=== PATIENT | female | born 1965 | race African-American/Black ===

== ENCOUNTER 2025-01-07 08:28 | Day surgery (SDC) | payer MEDICARE ==
[~2025-01-07 08:28] MED LIST: LACTATED RINGERS 1,000 ML IV SCH
[2025-01-07 08:57] VITALS: TEMP 97.1
[2025-01-07] MEDS: IV FLUID CONTINUATION 1,000 ML IV ONE (09:13)
[2025-01-07] MEDS ORDERED: LIDOCAINE 1% INJ 10MG/ML (20 ML MDV) ONE (09:28)
[2025-01-07] MEDS ORDERED: PROPOFOL 10 MG/ML 20 ML VIAL IV ONE (09:28)
--- NOTE | 2025-01-07 09:30 | P.GSHP ---
History of Present Illness H&P Date: 01/07/25 Chief Complaint: Colon cancer screening 59-year-old female here for colonoscopy. Her last colonoscopy was 10 years ago. No bowel complaints. No family history of colon cancer. Past Medical History Past Medical History: No Reported History History of Any Multi-Drug Resistant Organisms: None Reported Past Surgical History: No Surgical Hx Reported Additional Past Surgical History / Comment(s): moo cataracts removed Past Anesthesia/Blood Transfusion Reactions: No Reported Reaction Smoking Status: Current every day smoker - Past Family History Father Family Medical History: No Reported History Medications and Allergies Home Medications Medication Instructions Recorded Confirmed Type HYDROcodone/APAP 7.5-325MG [[place] 1 tab PO Q12H PRN 01/06/25 01/07/25 History 7.5-325] Iron(Unk) 1 tab PO DAILY 01/06/25 01/06/25 History Topiramate 50 mg PO DAILY 01/06/25 01/07/25 History Allergies Allergy/AdvReac Type Severity Reaction Status Date / Time Penicillins Allergy Unknown Verified 01/07/25 08:50 Surgical - Exam Vital Signs Temp Pulse Resp BP Pulse Ox 97.1 F L 55 L 16 148/69 100 01/07/25 08:51 01/07/25 08:51 01/07/25 08:51 01/07/25 08:51 01/07/25 08:51 Physical exam: General: Well-developed, well-nourished HEENT: Normocephalic, sclerae nonicteric Abdomen: Nontender, nondistended Extremities: No edema Neuro: Alert and oriented Assessment and Plan (1) Colon cancer screening Narrative/Plan: Will proceed with colonoscopy at this time. Current Visit: Yes Status: Acute Code(s): Z12.11 - ENCOUNTER FOR SCREENING FOR MALIGNANT NEOPLASM OF COLON SNOMED Code(s): 602245611
--- NOTE | 2025-01-07 09:44 | P.PCN ---
Date of Procedure: 01/07/25 Procedure(s) Performed: PREOPERATIVE DIAGNOSIS: Colon cancer screening POSTOPERATIVE DIAGNOSIS: Diverticulosis PROCEDURE: Colonoscopy ANESTHESIA: MAC SURGEON: Goldy Cortez M.D. SPECIMENS: None ENDOSCOPIC PROCEDURE: The patient was placed on the endoscopy table in the left decubitus position. The Olympus colonoscope was inserted into the anus and passed under direct visualization to the base of the cecum. The appendiceal orifice was visualized. From that point the scope was slowly withdrawn inspe cting all surfaces carefully. There were no neoplastic inflammatory or polypoid lesions throughout the cecum, ascending, transverse, descending, sigmoid and rectum. There was mild left-sided diverticulosis noted. Digital rectal examination was normal. The patient was taken to the recovery room in stable condition per anesthesia guidelines. RECOMMENDATIONS: Resume diet. Repeat colonoscopy 10 years.
[2025-01-07 09:53] VITALS: PULSE 66
[2025-01-07 10:04] VITALS: BP 135/66; RESP 16
== END 2025-01-07 10:20 | disposition home or self-care (01) ==
LOC: ORWHC2ENDO 08:28 → EDSEX 10:10 → ORWHC2ENDO 10:20
PROVIDERS: ATTEND Surgery
DX: Z12.11 Encounter for screening for malignant neoplasm of colon (principal); K57.30 Diverticulosis of large intestine without perforation or abscess without bleeding; K21.9 Gastro-esophageal reflux disease without esophagitis; F17.210 Nicotine dependence, cigarettes, uncomplicated; Z88.0 Allergy status to penicillin; Z79.899 Other long term (current) drug therapy
CPT/HCPCS: J2003; J2704; G0121